=== PATIENT | female | born 1980 | race Two or more races ===

== ENCOUNTER 2017-02-07 03:05 | Emergency (ER) | payer SELFPAY ==
[~2017-02-07] VITALS: Ht 162.6 cm; Wt 65.0 kg
[~2017-02-07 03:05] MED LIST: ADVAI250I; ALBU1AER INH; VENTAER INH
[2017-02-07] MEDS ORDERED: ALBUAER3 INH (03:10)
[2017-02-07] MEDS ORDERED: ALBU1.25 NEB (03:10)
[2017-02-07 03:11] VITALS: BP 136/83; PULSE 89; RESP 16; TEMP 98.3; O2SAT 99
[2017-02-07 03:44] VITALS: RESP 16; O2SAT 100
[2017-02-07] MEDS ORDERED: SODIUM CHLORID 0.9% 500 ML INJ 500 ML IV ONE (03:45)
--- NOTE | 2017-02-07 04:05 | PD ---
HPI Chief Complaint: OD/ Ingestion Time Seen by Provider: 03:34 Travel History International Travel<30 days: No Contact w/Intl Traveler<30days: No Traveled to known affect area: No History of Present Illness HPI The patient is a 36 year old female who presents to the [facility] emergency department with a history of being found unresponsive in a dressing room at her place of employment, [employer] prior to arrival. The patient had pinpoint pupils with decreased respiratory rate. The patient had a GCS reportedly of 5. The patient was given Narcan 2 mg IM and had resolution of her respiratory depression and decreased level of consciousness. She arrives with a GCS of 15. She reports that she does not know what happened. She reports that she often drinks at work and did have 2 alcoholic beverages just prior to feeling very drowsy. She reports that she went to the dressing room to rest her eyes and the next thing she knew she was on the floor with ambulance services and other people surrounding her. The patient's blood sugar was noted to be 207 by ambulance services prior to arrival. The patient reports a prior history of drug use, many years ago, however she denies any recent opiate or other drug use. On review of systems, the patient denies having any recent fevers, cough, congestion, neck pain, chest pain, shortness of breath, abdominal pain, vomiting, diarrhea, urinary symptoms, or other neurologic symptoms. 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 The patient reports that she has been tested for hepatitis C in the past and this was reportedly negative. Asthma: Yes Cardiovascular Problems: No Diminished Hearing: No Genitourinary: No Musculoskeletal: No Neurologic: No Reproductive: Yes Respiratory: Yes Immunizations Current: Yes Tetanus Vaccination: Unknown Influenza Vaccination: No ?: Not LMP: STATES BORN WITH NO OVARIES/UTERUS Past Surgical History Surgical History: No Previous Surgery Social History Alcohol Use: Yes (1-2 drinks per day) Tobacco Use: Yes (1PPD) Substance Use: No Allergies-Medications (Allergen,Severity, Reaction): Coded Allergies: No Known Allergies (Verified Adverse Reaction, Unknown, 02/07/17) Reported Meds & Prescriptions Reported Meds & Active Scripts Active Reported Albuterol Neb (Albuterol Sulfate) 1.25 Mg/3 Ml Neb 1.25 Mg NEB Q4HR NEB PRN Proair Hfa 8.5 GM Inh (Albuterol Sulfate) 90 Mcg/Act Aer 1 Puff INH Q4H PRN 108 mcg/actuation Review of Systems Except as stated in HPI: all other systems reviewed are Neg General / Constitutional: No: Fever Eyes: No: Visual changes HENT: No: Headaches Cardiovascular: No: Chest Pain or Discomfort Respiratory: No: Shortness of Breath Gastrointestinal: No: Abdominal Pain Genitourinary: No: Dysuria Musculoskeletal: No: Pain Skin: No Rash Neurologic: Positive: Change in Mentation, No: Weakness, Focal Abnormalities, Slurred Speech, Sensory Disturbance Psychiatric: No: Depression Endocrine: No: Polydipsia Hematologic/Lymphatic: No: Easy Bruising Physical Exam Narrative General: The patient is a well-developed well-nourished female in no acute distress. Head and Neck exam: Head is normocephalic atraumatic. Eyes: EOMI, pupils are equal round and reactive to light. Nose: Midline septum with pink mucous membranes Mouth: Dentition unremarkable. Moist mucus membranes. Posterior oropharynx is not erythematous. No tonsillar hypertrophy. Uvula midline. Airway patent. Neck: No palpable lymphadenopathy. No nuchal rigidity. No thyromegaly. Cardiovascular: Regular rate and rhythm without murmurs, gallops, or rubs. Lungs: Clear to auscultation bilaterally. No wheezes, rhonchi, or rales. Abdomen: Soft, without tenderness to palpation in all 4 quadrants of the abdomen. No guarding, rebound, or rigidity. Normal bowel sounds are audible. No tenderness on palpation of McBurney's point. Extremities: No clubbing, cyanosis, or edema. 2+ pulses in all 4 extremities. tenderness on palpation. Back: No spinous process tenderness to palpation. No costovertebral angle tenderness to palpation. Neurologic Exam: Awake and alert. The patient is oriented to person, place, time, and situation. The patient has a grossly nonfocal examination. Skin Exam: No rash noted. Intact skin that is warm and dry. The patient has scarring over her blood vessels in her upper extremities. Data Data Last Documented VS Vital Signs Date Time Temp Pulse Resp B/P (MAP) Pulse Ox O2 Delivery O2 Flow Rate FiO2 02/07/17 03:44 16 100 Room Air 1/2/18 03:11 98.3 89 136/83 (100) Orders Orders Complete Blood Count With Diff (02/07/17 03:34) Comprehensive Metabolic Panel (02/07/17 03:34) Urinalysis - C+S If Indicated (02/07/17 03:34) Iv Access Insert/Monitor (02/07/17 03:34) Ecg Monitoring (02/07/17 03:34) Oximetry (02/07/17 03:34) Ed Urine Pregnancytest Poc (02/07/17 03:34) Drug Screen, Random Urine (02/07/17 03:34) Alcohol (Ethanol) (02/07/17 03:34) Sodium Chlorid 0.9% 500 Ml Inj (Ns 500 M (02/07/17 03:45) Labs Laboratory Tests Test 02/07/17 04:15 02/07/17 04:23 Blood Urea Nitrogen 12 MG/DL Creatinine 0.79 MG/DL Random Glucose 89 MG/DL Total Protein 8.0 GM/DL Albumin 3.7 GM/DL Calcium Level 8.5 MG/DL Alkaline Phosphatase 80 U/L Aspartate Amino Transf (AST/SGOT) 58 U/L Alanine Aminotransferase (ALT/SGPT) 23 U/L Total Bilirubin 0.1 MG/DL Sodium Level 135 MEQ/L Potassium Level 5.7 MEQ/L Chloride Level 105 MEQ/L Carbon Dioxide Level 23.7 MEQ/L Anion Gap 6 MEQ/L Estimat Glomerular Filtration Rate 83 ML/MIN Ethyl Alcohol Level LESS THAN 3 MG/DL Urine Color YELLOW Urine Turbidity CLEAR Urine pH 6.0 Urine Specific Fries 1.017 Urine Protein TRACE mg/dL Urine Glucose (UA) NEG mg/dL Urine Ketones NEG mg/dL Urine Occult Blood NEG Urine Nitrite NEG Urine Bilirubin NEG Urine Urobilinogen LESS THAN 2.0 MG/DL Urine Leukocyte Esterase NEG Urine RBC LESS THAN 1 /hpf Urine WBC 1 /hpf Urine Squamous Epithelial Cells 1 /hpf Urine Hyaline Casts 27 /lpf Urine Mucus FEW /lpf Microscopic Urinalysis Comment CULT NOT INDICATED Urine Opiates Screen POS Urine Barbiturates Screen NEG Urine Amphetamines Screen NEG Urine Benzodiazepines Screen NEG Urine Cocaine Screen POS Urine Cannabinoids Screen NEG MDM Medical Decision Making Medical Screen Exam Complete: Yes Emergency Medical Condition: Yes Medical Record Reviewed: Yes Differential Diagnosis Accidental opiate overdose, versus intentional overdose Narrative Course During the course of the patients emergency department visit, the patients history, examination, and differential diagnosis were reviewed with the patient. The patient was placed on a medical research assistant with oximetry and frequent blood pressure monitoring. The patient had IV access obtained and blood work sent for analysis. The patient will be maintained on the medical research assistant and oximetry, while she is observed over the next 4 hours for any signs of decreased level of consciousness, decreased respiratory rate, or hypoxemia. IV access was difficult to obtain in this patient. IV access was able to be placed in the patient's right hand, however no blood was able to be drawn after repeat attempts by the nursing staff. IV access was obtained by me in the left external jugular vein. Blood was able to be obtained, however the IV infiltrated. The patient had the IV removed and a Band-Aid was applied. No hematoma formed. The patient was initially provided normal saline a 500 mL bolus 1 The patients laboratory studies were reviewed and remarkable for a CBC that was requested for re-collected, however this was not re-collected as the patient did not want further IV sticks. CMP is remarkable for sodium of 135, potassium 5.7, however the patient had hemolysis noted, GFR of 83, glucose 89, total bilirubin 0.1, AST 58. Alcohol level is less than 3, urine drug screen is positive for opiates and cocaine, urinalysis is unremarkable. The patient was instructed regarding the elevated liver enzyme, her AST. She is instructed that she should follow-up for additional hepatitis testing. She is given a copy of her lab results. The patient is resting comfortably and feels better, is alert and in no distress. The patients results and examination findings were discussed with the patient. The repeat examination is unremarkable and benign. The history, exam, diagnostic testing, and current condition do not suggest any significant pathology to warrant further testing, continued ED treatment, admission, or surgical evaluation at this point. The vital signs have been stable. The patient does not have uncontrollable pain, intractable vomiting, or other significant symptoms. The patient's condition is stable and appropriate for discharge. The patient will pursue further outpatient evaluation with a primary care physician or other designated or consulting physician as indicated in the discharge instructions. The patient expressed understanding and was agreeable with this plan. Diagnosis Primary Impression: Opiate or related narcotic overdose Qualified Codes: T40.601A - Poisoning by unspecified narcotics, accidental ( unintentional), initial encounter Additional Impression: Elevated AST (SGOT) Ref[facility]: [facility] Patient Instructions: General Instructions, Opioid Overdose (ED) Additional Instructions: One of the patient's liver enzymes, the AST is elevated. The patient was instructed regarding these results. The patient will be given a copy of her labs. She is instructed that she needs to follow-up for viral hepatitis testing. The patient is instructed that she could follow-up with the health Department or the [facility] for further testing. Med/Other Pt SpecificInfo: Prescription(s) given Scripts Naloxone Nasal [place] (Narcan Nasal [place]) 4 Mg/Act [place] 4 MG NASAL ONCE Y for OPIOID OVERDOSE, #1 PACK 0 Refills Contents of 1 nasal spray as a single dose; may repeat every 2 to 3 minutes in alternating nostrils until medical assistance becomes available. Prov: Nazia Aguirre MD 02/07/17 Disposition: 01 DISCHARGE HOME Condition: Stable Nazia Aguirre MD Feb 07, 2017 04:05
[2017-02-07 04:56] LABS: BILIRUBIN, URINE NEG (NEG); BLOOD, URINE NEG (NEG); GLUCOSE,URINE NEG (NEG); HYALINE CAST, URINE 27 /lpf (RARE); KETONE, URINE NEG (NEG); MUCUS URINE FEW /lpf (OCC); NITRITE,URINE NEG (NEG); SQUAMOUS EPITHELIAL CELL URINE 1 /hpf (0-5); URINE COLOR YELLOW (YELLW/STRAW); URINE LEUKOCYTE ESTERASE NEG (NEG)
[2017-02-07 05:19] LABS: ALKALINE PHOSPHATASE 80 U/L (45-117); TOTAL BILIRUBIN ADULT 0.1 MG/DL (0.2-1.0)
[2017-02-07 05:21] LABS: ALBUMIN 3.7 GM/DL (3.4-5.0); ALT (GPT) 23 U/L (10-53); AST (GOT) 58 U/L (15-37); BICARBONATE 23.7 MEQ/L (21.0-32.0); BLOOD UREA NITROGEN 12 MG/DL (7-18); CALCIUM 8.5 MG/DL (8.5-10.1); CHLORIDE 105 MEQ/L (98-107); CREATININE 0.79 MG/DL (0.50-1.00); GLOMERULAR FILTRATION RATE 83 ML/MIN (>89); GLUCOSE,RANDOM 89 MG/DL (74-106); SODIUM (NA) 135 MEQ/L (136-145)
[2017-02-07] MEDS ORDERED: NALO1SPR NASAL (05:54)
== END 2017-02-07 08:00 | disposition home or self-care (01) ==
LOC: NEPE 03:05
DX: T40.601A Poisoning by unspecified narcotics, accidental (unintentional), initial encounter (principal); F17.200 Nicotine dependence, unspecified, uncomplicated; J45.909 Unspecified asthma, uncomplicated
CPT/HCPCS: 80053; 80307; 81001; 84703; 96360; 96361; 99284; J7040